=== PATIENT | female | born 1955 ===

== ENCOUNTER 2018-01-31 15:18 | Outpatient (CLI) | payer MEDICARE ==
--- NOTE | 2018-01-31 16:57 | ULT ---
VENOUS DUPLEX SONOGRAM LEFT LOWER EXTREMITY: HISTORY: Left leg pain and edema. TECHNIQUE: The left common femoral vein and greater saphenous junction were evaluated, along with the femoral, d eep femoral, popliteal, and posterior tibial veins. FINDINGS: There is good color and spectral Doppler flow, compression, and augmentation. IMPRESSION: No sonographic evidence of deep venous thrombosis, left lower extremity. POS: [facility]
== END 2018-01-31 15:19 | disposition home or self-care (01) ==
LOC: NAV ULT 15:18
PROVIDERS: ATTEND Family Medicine
DX: R60.0 Localized edema (principal)

== ENCOUNTER 2018-06-25 10:11 | Emergency (ER) | payer MEDICARE ==
[2018-06-25] MEDS ORDERED: HYDROcodone/Acetaminophen 5/325 mg Tablet ONE (10:39)
[2018-06-25] MEDS ORDERED: Adacel (T-DAP) 0.5 ML SYRINGE ONE (10:51)
--- NOTE | 2018-06-25 11:16 | RAD ---
LEFT LEG 2 VIEWS: Date: 06/25/18 HISTORY: Fall, left leg pain. FINDINGS/IMPRESSION: There are postop changes and metallic hardware in the distal femur and proximal tibia. The left tibia and fibula appear intact. There is a fracture involving the superior aspect of the lateral femoral c ondyle. It cannot be said with certainty if this is new or old. Clinical correlation is recommended. POS: [facility]
--- NOTE | 2018-06-25 11:53 | RAD ---
FRONTAL AND LATERAL IMAGING OF LEFT FEMUR: Date: 06/25/18 COMPARISON: None. HISTORY: Fall, trauma, pain. FINDINGS: The femur is only partially imaged on this exam. The distal femur is imaged on the separate left tibi a and fibula series, also performed 06/25/18. The visualized portion of the femur demonstrates an inc ompletely imaged lateral screw and plate fixation. The fifth screw from the top is backed away from t he screw plate by 8.0 mm. There is moderate degenerative change involving the hip. The tibia/fibula s eries demonstrated a fracture at the proximal aspect of the lateral femoral condyle, not imaged on is study. IMPRESSION: Partial evaluation of left femur as above. POS: [facility]
[2018-06-25] MEDS ORDERED: Bacitracin Zinc 1 Packet ONE (12:23)
--- NOTE | 2018-06-25 13:37 | RAD ---
LEFT KNEE 4 VIEWS: Date: 06/25/18 HISTORY: Fall, trauma, pain. FINDINGS: There is an area of cortical disruption involving the proximal aspect of the left lateral femoral con dyle. This appears to involve the anterior cortex on the lateral view and is suspicious for age-indet erminate, possibly acute, fracture. No comparison imaging is available, however. Of note, there has b een significant trauma in the past associated with the mid shaft left femur and the proximal left tib ial shaft with associated postoperative fusion hardware consisting of lateral screw and plate fixatio ns. The second from the bottom and third from the bottom screw associated with left femur has backed away from the plate which may signify loosening. IMPRESSION: Findings suspicious for acute distal left femur fracture. Clinical correlation is essential. A CT exa mination of the left knee could best evaluate for acute fracture and extent of suspected distal left femur fracture. POS: ERA
== END 2018-06-25 13:17 | disposition home or self-care (01) ==
LOC: NAV ERS 10:11
DX: S72.422A Displaced fracture of lateral condyle of left femur, initial encounter for closed fracture (principal); S50.312A Abrasion of left elbow, initial encounter; G47.00 Insomnia, unspecified; M19.90 Unspecified osteoarthritis, unspecified site; E78.5 Hyperlipidemia, unspecified; F32.9 Major depressive disorder, single episode, unspecified; I10 Essential (primary) hypertension; W05.0XXA Fall from non-moving wheelchair, initial encounter
CPT/HCPCS: 27510; 90471; 90715